=== PATIENT | male | born 1995 | race Caucasian/White ===

== ENCOUNTER 2020-01-09 09:59 | Emergency (ER) | payer BC, SELFPAY ==
--- NOTE | ~2020-01-09 | US_ITS ---
EXAMINATION: US scrotum doppler EXAM DATE: 01/09/2020 11:13 INDICATION: Right-sided testicular pain and swelling. Symptoms since Sunday. TECHNIQUE: Multiple grayscale and Doppler images of the testicles and scrotum were obtained bilateral ly. There is no prior study for comparison. FINDINGS: Right testicle measures 4.8 x 1.9 x 2.9 cm and is morphologically normal. Low resistance Doppler beverley w confirmed. Mildly hypervascular. Right epididymis, possible mild epididymitis. Trace hydrocele. Left testicle measures 3.1 x 1.8 x 2.7 cm and is morphologically normal. Low resistance Doppler flow confirmed. The epididymis is unremarkable. There is no hydrocele or varicocele. IMPRESSION: 1. Possible mild right-sided epididymitis. Reviewed, dictated and finalized at location [facility].
--- NOTE | 2020-01-09 10:46 | ED.MALEGU ---
HPI - Male Genitourinary General Chief complaint: Urogenital-Male <Rebeka Parada PA-C - Last Filed: 01/09/20 13:46> Stated complaint: R testicle pain <Rebeka Parada PA-C - Last Filed: 01/09/20 13:46> Time Seen by Provider: 01/09/20 10:10 <Rebeka Parada PA-C - Last Filed: 01/09/20 13:46> Source: patient <Rebeka Parada PA-C - Last Filed: 01/09/20 13:46> Mode of arrival: ambulatory <Rebeka Parada PA-C - Last Filed: 01/09/20 13:46> Limitations: no limitations <Rebeka Parada PA-C - Last Filed: 01/09/20 13:46> History of Present Illness HPI Narrative: This is a 24 year old male that presents to the ER for right-sided testicular pain times 2 days. Reports the pain radiates into his groin. Denies concern for STDs. No rashes or abnormal discharge. Denies fever, abdominal pain, vomiting, dysuria or hematuria. <Rebeka Parada PA-C - Last Filed: 01/09/20 13:46> Related Data Allergies/Adverse reactions: Allergies Allergy/AdvReac Type Severity Reaction Status Date / Time amoxicillin Allergy Swelling Verified 01/09/20 10:21 levofloxacin [From Levaquin] Allergy Swelling Verified 01/09/20 13:02 <Rebeka Parada PA-C - Last Filed: 01/09/20 13:46> Review of Systems Review of Systems: Narrative: CONSTITUTIONAL: Denies fever GASTROINTESTINAL: Denies abdominal pain, nausea, vomiting GENITOURINARY: Denies dysuria or hematuria. <Rebeka Parada PA-C - Last Filed: 01/09/20 13:46> All systems reviewed & are unremarkable except as noted in HPI and below <Rebeka Parada PA-C - Last Filed: 01/09/20 13:46> PMFSH Past Medical History Medical History: Medical History (Updated 01/09/20 @ 13:44 by Rebeka Parada PA-C) No active medical problems <Rebeka Parada PA-C - Last Filed: 01/09/20 13:46> Surgical History Surgical History: Surgical History (Updated 01/09/20 @ 10:47 by Rebeka Parada PA-C) History of inguinal hernia repair <Rebeka Parada PA-C - Last Filed: 01/09/20 13:46> Social History Social History: Social History Smoking status: Never smoker Alcohol intake: never Gender identity (if verbalized by the patient): Male <Rebeka Parada PA-C - Last Filed: 01/09/20 13:46> Exam Narrative: Exam Narrative: GENERAL: Well-appearing, well-nourished, and in no acute distress. HEAD: Normocephalic, atraumatic. EYES: EOMI. CHEST: Clear to auscultation. No respiratory distress. No wheezes rales or rhonchi HEART: Regular rate and rhythm. No murmur heard. Normal peripheral pulses. ABDOMEN: Soft, nontender, nondistended, normal active bowel sounds. EXTREMITIES: Normal range of motion. No edema. SKIN: Warm, dry, no rash. NEURO: No focal deficits. Alert and oriented x3. PSYCH: Normal mood and affect MALE GENITAL: Normal external genitalia. Mild right sided testicular tenderness, without swelling or erythema <Rebeka Parada PA-C - Last Filed: 01/09/20 13:46> Course Vital Signs Vital signs: Vital Signs Pulse Rate 79 01/09/20 12:31 Respiratory Rate 16 01/09/20 12:31 Blood Pressure 136/74 01/09/20 12:31 Pulse Oximetry 98 01/09/20 12:31 Pulse Rate 79 01/09/20 12:31 Respiratory Rate 16 01/09/20 12:31 Blood Pressure 136/74 01/09/20 12:31 Pulse Oximetry 98 01/09/20 12:31 <Rebeka Parada PA-C - Last Filed: 01/09/20 13:46> Vital Signs Pulse Rate 79 01/09/20 12:31 Respiratory Rate 16 01/09/20 12:31 Blood Pressure 136/74 01/09/20 12:31 Pulse Oximetry 98 01/09/20 12:31 Pulse Rate 79 01/09/20 12:31 Respiratory Rate 16 01/09/20 12:31 Blood Pressure 136/74 01/09/20 12:31 Pulse Oximetry 98 01/09/20 12:31 <Erendira Abrams MD - Last Filed: 01/09/20 16:17> MDM - Male Genitourinary MDM Narrative Medical decision making narrative: Patient presents the emergency department for right-sided testicular pain x2 days. CBC and metabolic panel are withou
[2020-01-09 12:10] LABS: Blood Urea Nitrogen 15 mg/dL (9-20); Calcium 9.4 mg/dL (8.4-10.2); Carbon Dioxide 30 mmol/L (22-30); Chloride 104 mmol/L (98-107); Estimated CRCL calculation 135 ml/min; Estimated Glomerular Filt Rate > 60; Glucose 99 mg/dL (75-110); Potassium 3.9 mmol/L (3.4-5.0); Sodium 140 mmol/L (137-145)
[2020-01-09 12:13] LABS: Basophils Percent Auto 0.6 % (0.2-1.2); Eosinophils Absolute Auto 0.1 K/mm3 (0-0.3); Eosinophils Percent Auto 1.2 % (0-4.4); Hematocrit 43.1 % (42.0-52.0); Hemoglobin 14.5 g/dL (14.0-18.0); Immature Granulocyte Absolute 0.04 K/mm3 (0.00-0.031); Immature Granulocyte Percent A 0.8 % (0-0.5); Lymphocytes Absolute Auto 1.02 K/mm3 (0.9-3.2); Lymphocytes Percent Auto 20.2 % (18.3-44.2); Mean Corpuscular HGB Conc 33.6 g/dl (32-36); Mean Corpuscular Hemoglobin 31.3 pg (26-34); Mean Corpuscular Volume 93.1 fl (80-100); Mean Platelet Volume 11.6 fl (7.4-10.4); Monocytes Absolute Auto 0.4 K/mm3 (0.1-0.6); Monocytes Percent Auto 7.7 % (2.6-8.5); Neutrophils Absolute Auto 3.5 K/mm3 (1.3-6.7); Neutrophils Percent Auto 69.5 % (45.5-73.1); Platelet Count Result 193 k/mm3 (150-375); Red Blood Count 4.63 M/mm3 (4.6-6.20); Red Cell Distribution Width 12.8 % (11.5-14.5); White Blood Count 5.1 K/mm3 (4.5-10.0)
[2020-01-09] MEDS: cefTRIAXone 250 MG VIAL IM (12:23)
[2020-01-09 12:31] VITALS: BP 136/74; PULSE 79; RESP 16; O2SAT 98
[2020-01-09 13:05] LABS: Add Urine Microscopic? YES; Amorphous Sediment Urine Few; Appearance Urine Cloudy (Clear); Bilirubin Urine Negative (Negative); Blood Urine Negative (Negative); Color Urine Yellow (Yellow); Glucose Urine UA Negative (Negative); Ketones Urine Negative (Negative); Leukocyte Esterase Ur Negative LEU/UL (Negative); Mucus Urine Rare /lpf; Nitrate Urine Negative (Negative); Protein Urine Negative (Negative); RBC Urine 0-2 /hpf (0-2); Specific Grav Ur 1.012 (1.001-1.035); Urobilinogen Urine Negative mg/dL (<2.0); WBC Urine 0-3 /hpf
== END 2020-01-09 14:02 | disposition home or self-care (01) ==
PROVIDERS: Physician Assistant; Emergency Provider Emergency Medicine; PCP Family Medicine
DX: N45.1 Epididymitis (principal)
CPT/HCPCS: 36415; 76870; 80048; 81001; 85025; 87491; 87591; 87661; 93976; 96372; 99284; J0696

== ENCOUNTER 2020-12-07 19:29 | Emergency (ER) | payer BC, SELFPAY ==
[2020-12-07 19:33] VITALS: BP 138/82; PULSE 72; RESP 12; TEMP 36.7; O2SAT 100
--- NOTE | 2020-12-07 19:34 | ED.EYEPROB ---
HPI - Eye Problem General Chief complaint: Eye Problems Stated complaint: WET CONCRETE IN EYES Time Seen by Provider: 12/07/20 19:34 Source: patient and RN notes reviewed Mode of arrival: ambulatory Limitations: no limitations History of Present Illness HPI Narrative: 25-year-old male presents to the ER after splashing liquid concrete into the right eye. Patient states that he was mixing concrete when it splashed into his face. He was helping to pour concrete put up a basketball hoop for his mom. Denies any change in vision. No loss of vision. Eye is red. Happened just prior to arrival Related Data Allergies Allergy/AdvReac Type Severity Reaction Status Date / Time amoxicillin Allergy Severe Swelling Verified 10/12/20 14:48 levofloxacin [From Levaquin] Allergy Severe Swelling Verified 10/12/20 14:48 Review of Systems Review of Systems: All systems reviewed & are unremarkable except as noted in HPI and below Constitutional: Constitutional: Reports no additional constitutional complaints Eyes: Eyes: Reports as per HPI, Denies change in vision, Denies diplopia, Denies eye discharge, Denies dry eyes, Denies floaters, Reports irritation, Denies loss of vision, Denies requires corrective lenses, Denies photophobia and Denies spots in vision ENT: Reports system reviewed and no additional complaints, except as documented Cardiovascular: Cardiovascular: Reports no additional cardiovascular complaints Respiratory: Respiratory: Reports no additional respiratory complaints Musculoskeletal: Musculoskeletal: Reports no additional musculoskeletal complaints Integumentary/Breasts: Skin/Breast: Reports system reviewed and no additional complaints, except as docu Neurologic: Reports system reviewed and no additional complaints, except as documented Psychiatric: Psychiatric: Reports no additional psychiatric complaints [facility] Past Medical History Medical History Allergic rhinitis No active medical problems Right hydrocele Surgical History Surgical History History of inguinal hernia repair Social History Social History Smoking status: Never smoker Alcohol intake: never Gender identity (if verbalized by the patient): Male Comments At the time of my signature, I reviewed and agree with the nursing past medical, surgical, social, and family history. There is no relevant family history pertinent to the patient complaint. Exam Const: General: healthy appearing, no acute distress and alert Nutritional Appearance: well nourished Orientation/consciousness: patient oriented x3 HENMT: Head: normal to inspection Ears: hearing grossly normal bilaterally General nose exam: Normal external nose present Face and sinus: normal facial exam Mouth: Yes Normal oral and palatal mucosa present Teeth and gingiva: dentition normal Throat: posterior oropharynx normal Eyes: Visual Harris: normal visual harris by confrontation Alignment and Position: alignment normal Eyelids: eyelids normal Conjunctivae: conjunctival abnormality right Cornea: corneas normal and fluorescein used Pupils: Equal, round and reactive pupils present EOM: EOMs intact bilaterally Direct Ophthalmoscopy: normal light reflex and no photophobia Neck: Neck: normal visual inspection and no lymphadenopathy Chest: Chest palpation & inspection: normal inspection of the chest Resp: Effort & Inspection: normal respiratory effort Auscultation: clear to auscultation bilaterally Cardio: Rate: regular rate Rhythm: regular rhythm Back/Spine/Pelvis: Back: no CVA tenderness Skin: General skin exam: normal color Rashes: no rashes Neuro: General: patient oriented x3, moves all extremities and no meningeal signs Speech: normal speech Gait exam (Neuro): Normal gait present Extrem: General: normal to inspection Psych: Appearanc
== END 2020-12-07 20:00 | disposition home or self-care (01) ==
PROVIDERS: Emergency Provider Nurse Practitioner; PCP Family Medicine
DX: T15.11XA Foreign body in conjunctival sac, right eye, initial encounter (principal); X58.XXXA Exposure to other specified factors, initial encounter
CPT/HCPCS: 65205; 99213; A9270; G0463

== ENCOUNTER → 2022-09-19 10:20 | Outpatient (CLI) | payer BC, SELFPAY ==
--- NOTE | ~2022-09-19 | CT_ITS ---
EXAMINATION: CT abdomen pelvis wo con DATE: 09/19/2022 10:38 INDICATION: Right groin pain, inguinal hernia, reducible mass TECHNIQUE: Computed tomography (CT) of the abdomen and pelvis was performed without intravenous contr ast. Automated exposure control and iterative reconstruction technique were employed. Exam dose: 623 .25 mGy-cm total exam DLP. COMPARISON: None. FINDINGS: Normal heart size. No pericardial or pleural effusion. The lung bases are clear of infiltra te or consolidation. The liver, gallbladder, bile ducts, spleen, pancreas, pancreatic duct, and adrenal glands and kidneys are unremarkable. No urinary tract calculus or hydroureteronephrosis. Urinary bladder, prostate glan d and seminal vesicles are unremarkable. Normal appendix. No bowel obstruction, bowel wall thickening, pneumatosis or intraperitoneal free air . Very small fat-containing right inguinal hernia may be present. Normal caliber of the abdominal aorta. No intraperitoneal or retroperitoneal or pelvic mass lesion or adenopathy or ascites. Included skeletal structures are unremarkable. IMPRESSION: Possible very small fat-containing right inguinal hernia Normal appendix Reviewed, dictated and finalized at [facility]. Reviewed, dictated and finalized at location L. ER/FITTER
== END ==
PROVIDERS: PCP Family Medicine; Visit Provider Family Medicine
DX: K40.90 Unilateral inguinal hernia, without obstruction or gangrene, not specified as recurrent (principal)
CPT/HCPCS: 74176

== ENCOUNTER 2022-10-03 13:54 | Outpatient (CLI) | payer BC, SELFPAY | END 2022-10-03 13:55 | disposition home or self-care (01) | LOC: ANHSURGERY 13:57 | PROVIDERS: PCP Family Medicine; Visit Provider Surgery | DX: K40.90 Unilateral inguinal hernia, without obstruction or gangrene, not specified as recurrent (principal); Z01.818 Encounter for other preprocedural examination | CPT/HCPCS: 36415; 86850; 86900; 86901 ==

== ENCOUNTER 2022-10-10 01:39 | Day surgery (SDC) | payer BC, SELFPAY ==
[2022-09-29 09:48] VITALS: BMI 22.9
--- NOTE | 2022-09-29 09:52 | PC.NURSE ---
Report to the Outpatient Waiting Room, entrance under the green pavilion located off [facility], at time 10:00 on date 10/10/22. Planned Procedure Time: 12:00. Time changes happen often and if your time is changed the preop area will call you the afternoon before. - You and your visitor will be asked to self-screen and do not enter if you have any COVID symptoms. - Only one visitor is requested with a max of two and NO children visitors are allowed at this time. - The patient visitor may be requested to leave or wait in car when not with patient due to distancing restrictions. - A mask is optional within the hospital at this time. Patients may have clear liquids (water, carbonated beverages, clear teas, apple juice) until 3 hours prior to surgery (9:00) with a maximum of 20 ounces. - No food from midnight until time of surgery Take the following medications with a SIP of water the morning of surgery: N/A DO NOT STOP ANY OF YOUR OTHER PRESCRIPTION MEDICATIONS PRIOR TO SURGERY?EXCEPT THE FOLLOWING Medications to discontinue per physician: N/A Date to take last dose: N/A Please no make-up, nail luxembourgish, hairspray, perfume, deodorant, or body powder the day of surgery. No jewelry (including any body piercings) or valuables the day of surgery, leave them at home. Please take a shower or bath the night before, or the morning of, surgery with an antibacterial soap (HIBICLENS). Wear comfortable, loose fitting clothing. - Jewelry must be removed prior to entering the operating room. Rings and piercings that are not removed may be cut off. - The hospital will not accept responsibility for valuables. - Please leave all valuables, including medications, at home the day of surgery. If you are going home after surgery, a licensed delivery driver must drive you home. - NO public transportation without another adult if you receive anesthesia. - We recommend that an adult stay with you for 24 hours following discharge. - We also recommend that you do not drive, make important decision, drink alcoholic beverages, or take any drugs that were not prescribed by your health care provider for at least 24 hours after your discharge time. Follow any additional instructions given to you from your surgeon. If you or anyone in your household have experienced Covid symptoms in the past week, please notify your surgeon or the nurse liaison at the phone number below for possible testing. Telephone instructions given to PT - MARIPOSA QUINN and asked if any additional questions and then verbalized understanding. Patient advised to call surgeon office or pre surgery nurse liaison [phone] if any additional questions.
[2022-10-10] VITALS (7 sets, daily range): BP systolic 108–138; BP diastolic 58–90; PULSE 68–93; RESP 12–20; TEMP 36.6–37.1; O2SAT 98–100
[2022-10-10] MEDS: LACTATED RINGERS 1,000 ML 30 ML IV CONT ×2 (11:15→14:57)
[2022-10-10] MEDS: ACETAMINOPHEN 500 MG TABLET 1000 MG PO (11:15)
[2022-10-10] MEDS: KETOROLAC 15 MG/ML VIAL (*BKC) IV PUSH (11:15)
--- NOTE | 2022-10-10 11:29 | WPDANESEPPF ---
Anes - Initial Pre Proc Eval Procedure: Operation Date: 10/10/22 12:00 Proposed Procedures p Laparoscopic Right Inguinal Hernia Repair with Mesh, Davinci Assisted - Giancarlo Vega DO Date/Time: 10/10/22 11:29 Surgeon: Giancarlo Vega DO Pre Op Diagnosis: Right Inguinal Hernia Patient Data Age: 27 Gender: M Height: 1.78 m Weight: 73.86 kg Last Vital Signs Temp 37.1 C 10/10/22 11:02 Pulse 68 10/10/22 11:02 Resp 14 10/10/22 11:02 BP 122/84 10/10/22 11:02 Pulse Ox 100 10/10/22 11:02 O2 Del Method Room Air 10/10/22 11:02 Allergies Allergy/AdvReac Type Severity Reaction Status Date / Time amoxicillin Allergy Severe Swelling Verified 09/29/22 09:47 levofloxacin [From Levaquin] Allergy Severe Swelling Verified 09/29/22 09:47 Home Medications Medication Instructions Recorded Confirmed Type No Home Medications 09/29/22 09/29/22 History Patient hx anesthesia problems: none Family hx anesthesia problems: none Results Review: All pre-operative results and documents have been reviewed as part of the pre-operative evaluation. [facility] Past Medical History Medical History Allergic rhinitis No active medical problems Right hydrocele Surgical History Surgical History History of inguinal hernia repair Social History Social History Smoking status: Never smoker Alcohol intake: current Drinks per week: 2 Substance use: never Substance use type: does not use Living arrangements: with family Gender identity (if verbalized by the patient): Male Spiritual care concerns: No Anes - Eval Final PreProcedure Day of Procedure 10/10/22 11:29 Patient weight: normal Heart: regular rate and rhythm Lungs: clear to auscultation and normal air movement Airway: Mallampati scale class II Neurological: alert and oriented Last oral intake: >/= 8 hours ASA classification: I Emergent: no Anesthetic plan: proceed Anesthesia type and monitoring: general ETT Results Review: All pre-operative results and documents have been reviewed as part of the pre-operative evaluation. Informed Consent: The patient's anesthetic plan and its attendant risks and benefits were discussed with the patient/family/POA. Questions were solicited and answers provided to the satisfaction of the patient/family/POA.
--- NOTE | 2022-10-10 12:22 | WPDHPUPDATE1 ---
History and Physical Update Update Date/Time: 10/10/22 12:22 History and Physical has been reviewed, including an updated exam of the patient. There are NO changes in the patient's condition. Risks, benefits, and alternatives have been discussed and questions answered. Patient agrees to proceed with procedure.
--- NOTE | 2022-10-10 12:23 | WPDHPUPDATE1 ---
History and Physical Update Update Date/Time: 10/10/22 12:23 History and Physical has been reviewed, including an updated exam of the patient. There are NO changes in the patient's condition. Risks, benefits, and alternatives have been discussed and questions answered. Patient agrees to proceed with procedure.
[2022-10-10] MEDS: ceFAZolin 2 GM/D5W 50 ML 2 GM/50 ML BAG IVPB (12:50)
[2022-10-10] MEDS: BUPIVACAINE/EPINEPHRINE 0.25% 50 ML VIAL 30 ML INFILTRATE (13:23)
--- NOTE | 2022-10-10 14:39 | W.PM.PROC2 ---
Procedure Note - Detailed Date of Procedure 10/10/22 Pre-op Diagnosis Right Inguinal Hernia Post-op Diagnosis Other (Right indirect inguinal hernia, recurrent left indirect inguinal hernia) Procedure Performed 1. Laparoscopic right inguinal hernia repair with mesh, da Lois assisted 2. Laparoscopic recurrent left inguinal hernia repair with mesh, da Lois assisted Surgeon Giancarlo Vega, Anesthesia General and Local (0.5% bupivacaine with epinephrine) Indications This is a 27-year-old man who has been complaining of bilateral groin pain for the past couple months. He had a CT of his abdomen and pelvis performed which was normal, but on exam he was found to have a reducible right inguinal hernia. No left inguinal hernia was identified on exam, but patient had history of left inguinal hernia repair as a child. Discussions were made with the patient about treatment options and decision was made to proceed with laparoscopic right inguinal hernia repair mesh, da Lois assisted. Findings Upon inspecting the abdomen laparoscopically, patient was found have a small indirect right inguinal hernia and he also had evidence of a small recurrent indirect left inguinal hernia. Laparoscopic bilateral inguinal hernia repair was performed. A robotic transabdominal preperitoneal approach was utilized. A preperitoneal pocket was created on each side and the hernia sac was reduced. Large Bard 3DMax mid mesh was placed overlying each myopectineal orifice on each side. No specimens were obtained for pathology. Description of Procedure Procedure as well as risks, benefits, and alternatives were discussed with the patient. Written consent was obtained and placed in chart prior to procedure. Patient was brought back to surgical suite. He was placed supine on operating table. Time-out was done to confirm patient and procedure. He was then intubated by Anesthesia Department. His abdomen was prepped and draped in sterile fashion using chlorhexidine prep. 0.5% bupivacaine with epinephrine was infiltrated at each location for incision. A 12 millimeter transverse incision was made just superior to the umbilicus using a 15 blade scalpel. Blunt dissection was carried out down to the linea alba. A vertical incision was made at the linea alba using a 15 blade scalpel. The peritoneum was then bluntly entered. A 12 millimeter trocar was inserted and carbon dioxide insufflation was used to create a pneumoperitoneum. A camera was inserted and the abdominal cavity was inspected. The patient was placed in slight Trendelenburg position. An 8 millimeter incision was made on the right lateral abdomen and an 8 millimeter trocar was inserted under direct visualization. Another 8 millimeter incision was made in the left lateral abdomen and an 8 millimeter trocar was inserted under direct visualization. The robotic arms were brought up to the patient's bedside and secured to the ports. The camera and instruments were inserted. I then moved over to the robotic console and took control of the camera and instruments. After careful inspection of the abdominal cavity, I began scoring the peritoneum along the right lower quadrant using scissors with electrocautery. The preperitoneal plane was entered and this was carefully dissected caudally along the inferior epigastric vessels. Careful dissection with scissors with electrocautery and blunt dissection was used to continue this dissection. I dissected far enough laterally to allow for mesh placement, and also dissected medially to identify the pubic arch and Triston's ligament. The hernia sac was identified and carefully dissected posteriorly. The cord contents were also identified and the peritoneum was carefully dissected far enough posteriorly to allow for mesh placement. Once an adequate pocket was created, I then placed the mesh within the preperitoneal pocket and carefully unfolded it. The mesh was centered on the hernia defect with
[2022-10-10] MEDS: oxyCODONE HCL (*CRX) 5 MG TAB IR PO (16:43)
== END 2022-10-10 17:07 | disposition home or self-care (01) ==
PROVIDERS: PCP Family Medicine; Visit Provider Surgery
PROC: 8E0Y4CZ Robotic Assisted Procedure of Lower Extremity, Percutaneous Endoscopic Approach (ICD-10-PCS; CPT 49650; principal; 2022-10-10 12:00)
DX: K40.90 Unilateral inguinal hernia, without obstruction or gangrene, not specified as recurrent (principal); K40.91 Unilateral inguinal hernia, without obstruction or gangrene, recurrent
CPT/HCPCS: 49650; 49651; S2900; A9270; C1781; J0690; J1100; J1885; J2250; J2405; J2704; J3010; J7120